=== PATIENT | male | born 2000 | race Caucasian/White ===

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

== ENCOUNTER 2021-10-16 06:56 | Emergency (ER) | payer BC, OTHER ==
[~2021-10-16] VITALS: Ht 167 cm; Wt 70.0 kg
[2021-10-16] MEDS ORDERED: LACTATED RINGERS 1,000 ML IV STA (07:14)
[2021-10-16] MEDS ORDERED: PROMETHAZINE INJ 25 MG/ML (PHENERGAN) AMP IVP ONE (07:15)
[2021-10-16] MEDS ORDERED: KETOROLAC 30 MG/ML VIAL IVP ONE (07:15)
[2021-10-16] MEDS ORDERED: PANTOPRAZOLE 40 MG (PROTONIX) VIAL IV ONE (07:15)
--- NOTE | 2021-10-16 07:23 | ED General ---
General Chief Complaint: General Problems/Pain Stated Complaint: DIZZY,FATIGUE,BACK PX & NECK PX Nursing Triage Note: ARRIVED VIA AMB TO ROOM 05 WITH COMPLAINTS OF BEING DIZZY, SWEATING, AND VOMITING. Source of Information: Patient Exam Limitations: No Limitations History of Present Illness Date Seen by Provider: Oct 16, 2021 Time Seen by Provider: 06:59 Initial Comments 21yoM with PMH of GERD coming in due to 1 day of nonbloody nonbilious emesis with associated nausea and room spinning vertigo. Vertigo is worse when he moves his head, gets better quickly when he stops moving. Was recently ill with a viral illness, tested for COVID and was negative with the most recent test about a week ago. Was diagnosed with viral bronchitis. Has some neck discomfort but no stiffness. Has been taking ibuprofen with the last dose last night. Did have chills and sweats, but he is unsure if he had a fever. Does not have any new cough. Has no diarrhea, chest pain, shortness of breath, abdominal pain, rash, weakness, numbness, or any other concerns. Has not had symptoms like this consistently before. Allergies and Home Medications Allergies Coded Allergies: No Known Drug Allergies (Unverified , 10/08/11) Patient Home Medication List Home Medication List Reviewed: Yes Cyclobenzaprine HCl (Cyclobenzaprine HCl) 10 Mg Tablet, 10 MG PO Q8H PRN for SPASMS Prescribed by: TAYLOR PADGETT on 10/16/21 0824 Meclizine HCl (Meclizine HCl) 25 Mg Tablet, 25 MG PO Q12H PRN for VERTIGO Prescribed by: TAYLOR PADGETT on 10/16/21 0816 Ondansetron (Ondansetron Odt) 4 Mg Tab.rapdis, 4 MG PO Q6H PRN for NAUSEA/VOMITING-1ST LINE Prescribed by: TAYLOR PADGETT on 10/16/21 0816 Promethazine HCl (Promethazine Tablet) 25 Mg Tablet, 25 MG PO Q6H PRN for NAUSEA/VOMITING-2ND LINE Prescribed by: TAYLOR PADGETT on 10/16/21 0816 Review of Systems Review of Systems Constitutional: chills EENTM: other (Vertigo) Respiratory: cough Cardiovascular: No chest pain Gastrointestinal: No abdominal pain; nausea, vomiting Genitourinary: no symptoms reported Musculoskeletal: no symptoms reported Skin: no symptoms reported Psychiatric/Neurological: No Symptoms Reported Hematologic/Lymphatic: No Symptoms Reported Immunological/Allergic: no symptoms reported All Other Systems Reviewed Negative Unless Noted: Yes Past Frgbwez-Ggifpi-Cjlaxb Hx Patient Social History Tobacco Use?: No Substance use?: No Alcohol Use?: Yes Alcohol Frequency: Once in a while Seasonal Allergies Seasonal Allergies: No Past Medical History Surgeries: No Adenoidectomy, Tonsillectomy Reproductive Disorders: No Physical Exam Vital Signs Vital Signs - First Documented 10/16/21 07:11 Temp 36.3 Pulse 97 Resp 16 B/P (MAP) 141/74 (96) Pulse Ox 99 O2 Delivery Room Air Capillary Refill : Less Than 3 Seconds Height, Weight, BMI Height: 5'5.00" Weight: 145lbs. oz. 65.687857lf; 25.00 BMI Method:Stated General Appearance: WD/WN, Other (Bending over a bucket, ill-appearing but not toxic) HEENT: PERRL/EOMI, Pharynx Normal, Other (Fluid behind left tympanic membrane with no erythema) Neck: Full Range of Motion, Normal Inspection, Non Tender, Supple, Other (No meningismus) Respiratory: Chest Non Tender, Lungs Clear, Normal Breath Sounds, No Accessory Muscle Use, No Respiratory Distress Cardiovascular: Regular Rate, Rhythm, No Edema, Normal Peripheral Pulses Gastrointestinal: Normal Bowel Sounds, Non Tender, Soft; No Distended, No Guarding Back: Normal Inspection, No CVA Tenderness Extremity: Normal Capillary Refill, Normal Inspection, Normal Range of Motion, Non Tender, No Calf Tenderness, No Pedal Edema Neurologic/Psychiatric: Alert, No Motor/Sensory Deficits, Normal Mood/Affect, Other (Normal extraocular movements, normal visual sosa and visual acuity, normal heqbkr-kq-nmkk, normal gait) Skin: Normal Color, Warm/Dry Lymphatic: No Adenopathy Progress/Results/Core Measures Suspected Sepsis SIRS Temperature: Pulse: 97 Respiratory Rate: 16 Laboratory Tests 10/16/21 07:25: White Blood Count 14.5H Blood Pressure 141 /74 Mean: 96 Laboratory Tests 10/16/21 07:25: Creatinine 1.08, Platelet Count 211, Total Bilirubin 0.5 Results/Orders Lab Results Laboratory Tests Test 10/16/21 07:25 Range/Units White Blood Count 14.5 H 4.3-11.0 10^3/uL Red Blood Count 5.23 4.30-5.52 10^6/uL Hemoglobin 15.6 13.3-17.7 g/dL Hematocrit 45 40-54 % Mean Corpuscular Volume 86 80-99 fL Mean Corpuscular Hemoglobin 30 25-34 pg Mean Corpuscular Hemoglobin Concent 35 32-36 g/dL Red Cell Distribution Width 11.9 10.0-14.5 % Platelet Count 211 130-400 10^3/uL Mean Platelet Volume 10.2 9.0-12.2 fL Immature Granulocyte % (Auto) 0 % Neutrophils (%) (Auto) 83 H 42-75 % Lymphocytes (%) (Auto) 10 L 12-44 % Monocytes (%) (Auto) 6 0-12 % Eosinophils (%) (Auto) 1 0-10 % Basophils (%) (Auto) 1 0-10 % Neutrophils # (Auto) 12.0 H 1.8-7.8 10^3/uL Lymphocytes # (Auto) 1.4 1.0-4.0 10^3/uL Monocytes # (Auto) 0.9 0.0-1.0 10^3/uL Eosinophils # (Auto) 0.2 0.0-0.3 10^3/uL Basophils # (Auto) 0.1 0.0-0.1 10^3/uL Immature Granulocyte # (Auto) 0.0 0.0-0.1 10^3/uL Neutrophils % (Manual) 84 % Lymphocytes % (Manual) 11 % Monocytes % (Manual) 5 % Blood Morphology Comment NORMAL Sodium Level 140 135-145 MMOL/L Potassium Level 3.7 3.6-5.0 MMOL/L Chloride Level 104 98-107 MMOL/L Carbon Dioxide Level 21 21-32 MMOL/L Anion Gap 15 H 5-14 MMOL/L Creatinine 1.08 0.60-1.30 MG/DL Estimat Glomerular Filtration Rate 99 Glucose Level 111 H 70-105 MG/DL Calcium Level 9.1 8.5-10.1 MG/DL Corrected Calcium 8.9 8.5-10.1 MG/DL Total Bilirubin 0.5 0.1-1.0 MG/DL Alkaline Phosphatase 49 40-136 U/L Total Protein 7.0 6.4-8.2 GM/DL Albumin 4.2 3.2-4.5 GM/DL Influenza Type A (RT-PCR) Not Detected Not Detecte Influenza Type B (RT-PCR) Not Detected Not Detecte SARS-CoV-2 RNA (RT-PCR) Not Detected Not Detecte My Orders Orders - TAYLOR PADGETT MD Cbc With Automated Diff (10/16/21 07:14) Comprehensive Metabolic Panel (10/16/21 07:14) Magnesium (10/16/21 07:14) Influenza A And B By Pcr (10/16/21 07:14) Covid 19 Inhouse Test (10/16/21 07:14) Lactated Ringers (Lr 1000 Ml Iv Solution (10/16/21 07:14) Promethazine Injection (Phenergan Injec (10/16/21 07:15) Pantoprazole Injection (Protonix Injecti (10/16/21 07:15) Ketorolac Injection (Toradol Injection) (10/16/21 07:15) Manual Differential (10/16/21 07:25) Medications Given in ED Current Medications Medications Dose Ordered Sig/Candy Route Start Time Stop Time Status Last Admin Dose Admin Ketorolac Tromethamine 15 mg ONCE ONCE IVP 10/16/21 07:15 10/16/21 07:17 DC 10/16/21 07:36 15 MG Pantoprazole 40 mg ONCE ONCE IV 10/16/21 07:15 10/16/21 07:17 DC 10/16/21 07:36 40 MG Promethazine HCl 25 mg ONCE ONCE IVP 10/16/21 07:15 10/16/21 07:17 DC 10/16/21 07:36 25 MG Vital Signs/I&O 10/16/21 07:11 Temp 36.3 Pulse 97 Resp 16 B/P (MAP) 141/74 (96) Pulse Ox 99 O2 Delivery Room Air Capillary Refill : Less Than 3 Seconds Blood Pressure Mean: 96 Progress Note : Progress Note 21-year-old male with above history coming in due to nausea and vomiting with vertigo-like symptoms for the past 24 hours. ABCs were intact and vitals were stable on presentation. Physical exam reassuring including a nonfocal neurologic exam and a normal gait. He has no hearing loss in his ears, does have some fluid behind his left tympanic membrane with no ringing in his ears. There is no cerebellar signs. He did recently have a viral illness, and this could be simply the vertigo from the fluid behind his ear versus BPPV versus vestibular neuritis. An IV was placed and he was given a bolus of IV fluids, Phenergan, and Toradol. COVID and flu testing negative. Overall he is well- appearing and I believe stable for discharge with outpatient follow-up. He was sent home with strict return precautions. Departure Impression Primary Impression: Vertigo Additional Impression: Vomiting in adult Disposition: 01 HOME, SELF-CARE Condition: Stable Departure-Patient Inst. Decision time for Depature: 08:35 Referrals: MARINO VALLECILLO DO (PCP/Family) Primary Care Physician Patient Instructions: Vertigo ED Add. Discharge Instructions: I think it is likely you have something called BPPV versus vestibular neuritis. Both often go away by themselves. It could also be due to the extra fluid behind your ears. You can try taking an over the counter Zyrtec to help dry that fluid up. Drink plenty of fluids and you can take the medicines that were sent to your pharmacy for nausea. The meclizine is for the vertigo like feeling or the room spinning. You can go back to work after not vomiting for 24 hours. If symptoms persist for over a week then I would get a referral to a neurologist. Scripts Cyclobenzaprine HCl (Cyclobenzaprine HCl) 10 Mg Tablet 10 MG PO Q8H PRN for SPASMS for 5 Days, #15 TAB Prov: TAYLOR PADGETT MD 10/16/21 Meclizine HCl (Meclizine HCl) 25 Mg Tablet 25 MG PO Q12H PRN for VERTIGO for 7 Days, #14 TAB Prov: TAYLOR PADGETT MD 10/16/21 Promethazine HCl (Promethazine Tablet) 25 Mg Tablet 25 MG PO Q6H PRN for NAUSEA/VOMITING-2ND LINE for 5 Days, #20 TAB Prov: TAYLOR PADGETT MD 10/16/21 Ondansetron (Ondansetron Odt) 4 Mg Tab.rapdis 4 MG PO Q6H PRN for NAUSEA/VOMITING-1ST LINE for 5 Days, #20 TAB Prov: TAYLOR PADGETT MD 10/16/21 Work/School Note: Family Work Note, Patient Received Medical Care In the Emergency Department On: Oct 16, 2021 Patient Will Be Able to Return to Work/School On: Oct 17, 2021 Work Release Form Date Seen in the Emergency Department: Oct 16, 2021 Return to Work: Oct 18, 2021 Restrictions: Return-No Fever (24hrs), Return-No Vomiting(24hrs) TAYLOR PADGETT MD Oct 16, 2021 07:23
[2021-10-16 07:39] LABS: BASOPHILS # (AUTO) 0.1 10^3/uL (0.0-0.1); BASOPHILS % (AUTO) 1 % (0-10); EOSINOPHILS # (AUTO) 0.2 10^3/uL (0.0-0.3); EOSINOPHILS % (AUTO) 1 % (0-10); HEMATOCRIT 45 % (40-54); HEMOGLOBIN 15.6 g/dL (13.3-17.7); LYMPHOCYTES # (AUTO) 1.4 10^3/uL (1.0-4.0); LYMPHOCYTES % (AUTO) 10 % (12-44); MEAN CORPUSCULAR HEMOGLOBIN 30 pg (25-34); MEAN CORPUSCULAR HGB CONC 35 g/dL (32-36); MEAN CORPUSCULAR VOLUME 86 fL (80-99); MEAN PLATELET VOLUME 10.2 fL (9.0-12.2); MONOCYTES # (AUTO) 0.9 10^3/uL (0.0-1.0); MONOCYTES % (AUTO) 6 % (0-12); NEUTROPHILS % (AUTO) 83 % (42-75); PLATELET COUNT 211 10^3/uL (130-400); WHITE BLOOD COUNT 14.5 10^3/uL (4.3-11.0)
[2021-10-16] MEDS ORDERED: ONDA4TAB11 PO (08:16)
[2021-10-16] MEDS ORDERED: MECL-149 PO (08:16)
[2021-10-16] MEDS ORDERED: PROM25TA14 PO (08:16)
[2021-10-16] MEDS ORDERED: CYCL10TA25 PO (08:24)
[2021-10-16 08:25] LABS: LYMPHOCYTES % (MANUAL) 11 %; MONOCYTES % (MANUAL) 5 %; NEUTROPHILS % (MANUAL) 84 %; RBC MORPH NORMAL
[2021-10-16 08:28] LABS: ALBUMIN 4.2 GM/DL (3.2-4.5); POTASSIUM 3.7 MMOL/L (3.6-5.0)
[2021-10-16 08:29] LABS: CALCIUM 9.1 MG/DL (8.5-10.1)
[2021-10-16 08:32] LABS: BILIRUBIN,TOTAL 0.5 MG/DL (0.1-1.0)
[2021-10-16 08:34] LABS: CREATININE SERUM 1.08 MG/DL (0.60-1.30)
[2021-10-16 08:37] LABS: MAGNESIUM 1.9 MG/DL (1.6-2.4)
[2021-10-16 08:40] VITALS: BP 98/61
== END 2021-10-16 08:40 | disposition home or self-care (01) ==
LOC: EDUNIT# 06:56 → EEVIPCON 07:00 → ER 07:00
DX: R42 Dizziness and giddiness (principal); R11.2 Nausea with vomiting, unspecified; Z20.822 Contact with and (suspected) exposure to COVID-19; Z28.310 Unvaccinated for COVID-19
CPT/HCPCS: 36415; 80053; 83735; 85007; 85027; 87636